=== PATIENT | female | born 1980 | race African-American/Black ===

== ENCOUNTER → 2017-08-29 | Outpatient (CLI) | payer BC | LOC: OD 15:06 | PROVIDERS: ATTEND Advanced Practice Midwife | DX: O02.1 Missed abortion (principal) | CPT/HCPCS: 36415; 84702 ==

== ENCOUNTER → 2017-08-31 | Outpatient (CLI) | payer BC | LOC: OD 15:51 | PROVIDERS: ATTEND Advanced Practice Midwife | DX: O02.0 Blighted ovum and nonhydatidiform mole (principal) | CPT/HCPCS: 36415; 84702 ==

== ENCOUNTER → 2017-09-04 | Outpatient (CLI) | payer BC | LOC: OD 08:35 | PROVIDERS: ATTEND Advanced Practice Midwife | DX: O02.0 Blighted ovum and nonhydatidiform mole (principal) | CPT/HCPCS: 36415; 84702 ==

== ENCOUNTER → 2017-09-20 | Outpatient (CLI) | payer BC | LOC: OD 17:01 | PROVIDERS: ATTEND Advanced Practice Midwife | DX: Z32.01 Encounter for pregnancy test, result positive (principal) | CPT/HCPCS: 36415; 84702 ==